=== PATIENT | male | born 1985 | race Two or more races ===

== ENCOUNTER 2018-06-07 15:01 | Outpatient (CLI) | payer OTHER | END 2018-06-07 15:15 | disposition home or self-care (01) | LOC: RAD 501 15:01 | DX: M79.671 Pain in right foot (principal) ==

== ENCOUNTER 2019-05-23 15:08 | Emergency (ER) | payer OTHER ==
[~2019-05-23] VITALS: Ht 182.9 cm; Wt 91.6 kg
[2019-05-23] MEDS ORDERED: LOTRISONE CREAM45 GM TOP (18:35)
[2019-05-23] MEDS ORDERED: MEDROLPACK PO (18:35)
[2019-05-23] MEDS ORDERED: BACTRIM DS TAB1 EACH PO (18:35)
== END 2019-05-23 18:46 | disposition home or self-care (01) ==
LOC: ER 15:08
DX: R21 Rash and other nonspecific skin eruption (principal)